=== PATIENT | female | born 1945 | race Two or more races ===

== ENCOUNTER 2023-03-02 14:57 | Emergency (ER) | payer BC, OTHER ==
[2023-03-02 15:07] VITALS: BP 116/66; PULSE 89; RESP 18; TEMP 100; BMI 25.0
[2023-03-02 16:33] LABS: EPI CELLS 15 /uL (0-25.1); HYALINE CASTS 0 /uL (0-3.1); PH,URINE 5.5 (5.0-8.0); URINE APPEARANCE CLOUDY; URINE BACTERIA 115 /uL (0-1359); URINE BILIRUBIN NEGATIVE (NEGATIVE); URINE COLOR YELLOW; URINE GLUCOSE (UA) NEGATIVE (NEGATIVE); URINE KETONE NEGATIVE (NEGATIVE); URINE LEUK ESTERASE 1+ (NEGATIVE); URINE NITRITE NEGATIVE (NEGATIVE); URINE PROTEIN NEGATIVE (NEGATIVE); URINE RBC 39 /uL (0-23.9); URINE UROBILINOGEN 0.2 mg/dL (0.2-1.0); URINE WBC 59 /uL (0-25.8)
[2023-03-02] MEDS ORDERED: CEPHALEXIN MONOHYDRATE 500 MG CAPSULE (UD) PO ONE (17:22)
[2023-03-02] MEDS ORDERED: CEPHALEXIN MONOHYDRATE 500 MG CAPSULE (UD) ONE (17:24)
== END 2023-03-02 17:31 | disposition home or self-care (01) ==
LOC: JERFT 14:57
DX: R50.9 Fever, unspecified (principal); R10.30 Lower abdominal pain, unspecified; M54.50 Low back pain, unspecified; R30.0 Dysuria; N30.01 Acute cystitis with hematuria
CPT/HCPCS: 81003; 87086; 87186; 99283-25